=== PATIENT | male | born 1975 | race Caucasian/White ===

== ENCOUNTER → 2017-07-12 | Outpatient (CLI) | payer OTHER, BC ==
[~2017-07-12] MED LIST: ACET325T96 PO; AMIT50TA3 PO; MULT-618 PO; PANT40TA PO; PROB1TAB16 PO
--- NOTE | 2017-07-12 08:24 | DIAGNOSTIC IMAGING REPORT ---
ABDOMEN FOR HERNIA HISTORY: 42 years-old Male AB PAIN acute abdominal pain originating from the region of the right inguinal distribution. COMPARISON: CT 06/23/2016 TECHNIQUE: Multiple real-time sonographic images of the right inguinal soft tissues were obtained assessing grayscale appearance. FINDINGS/IMPRESSION: Reducible small fat filled right inguinal hernia is noted without associated bowel extending into the hernia ostium. There also appears to be trace nonspecific fluid extending into the inguinal hernia. No dilated loops of bowel identified. The above report was generated using voice recognition software. It may contain grammatical, syntax or spelling errors. Electronically signed by: Rajendra Jaimse M.D. 07/12/2017 8:23 AM Dictated Date/Time: 07/12/2017 8:18 AM
== END | disposition home or self-care (01) ==
LOC: C.ULTR 07:29
PROVIDERS: ATTEND Nurse Practitioner
DX: R10.9 Unspecified abdominal pain (principal); K40.90 Unilateral inguinal hernia, without obstruction or gangrene, not specified as recurrent

== ENCOUNTER → 2017-11-25 | Day surgery (SDC) | payer OTHER ==
[2017-11-22 14:50] VITALS: Ht 170.2 cm; Wt 81.8 kg
[~2017-11-25] VITALS: Ht 170.2 cm; Wt 81.8 kg
[~2017-11-25] MED LIST changes: -ACET325T96 PO; -AMIT50TA3 PO; +AMT100 PO; +ATROPINE SULFATE 0.1 MG/ML 5ML SYR IV PRN; +BUPIVACAINE 0.5 % 5 MG/1 ML MPF 30ML VIAL ONE; +CEFAZOLIN 2000MG IV PUSH 15 ML IV SCH; +DEXAMETHASONE SOD INJ 4 MG/ML VIAL ONE; +EpHEDrine SULFATE INJ 50 MG/ML AMP IV PRN; +FENTANYL CITRATE INJ 50 MCG/1 ML 2 ML VIAL ONE; +FLUO10CA48 PO; +HYDROmorphone INJ 1 MG/ML SYR IV PRN; +IBUP-1050 PO; +KETOROLAC TROMETHAMINE 30 MG/ML VIAL IV. PRN; +LACTATED RINGER'S 1000ML 1,000 ML IV SCH; +LIDOCAINE HCL 2% 2 ML VIAL (20MG/ML) ONE; +MIDAZOLAM HCL 1 MG/ML 2ML VIAL ONE; +MoRPHine SULFATE 2 MG/ML CARP IV PRN; +MoRPHine SULFATE 4 MG/ML 1 ML CARP\\VIAL IV PRN; +ONDANSETRON INJ 2 MG/ML 2 ML VIAL IV PRN; +ONDANSETRON INJ 2 MG/ML 2 ML VIAL ONE; +OXYC-57 PO; +OXYCODONE/ACETAMINOPHEN 5-325 TAB PO PRN; +PROPOFOL IV EMULSION 10 MG/ML 20 ML VIAL IV ONE; +SODIUM CHLORIDE 0.9% 1000ML 1,000 ML IV SCH; +URSO500T PO
--- NOTE | 2017-11-25 08:13 | Discharge Instructions ---
Discharge Instructions Date of Service Nov 25, 2017. Visit Reason for Visit: Right Inguinal Hernia Repair Discharge Discharge Diagnosis / Problem: inguinal hernia repair Discharge Goals Goal(s): Decrease discomfort Activity Recommendations Activity Limitations: as noted below Lifting Limitations: no more than 10 pounds Shower/Bathe: no limitations Driving or Machine Use: 1 week Anesthesia . Post Anesthesia Instructions: If you have had General Anesthesia or IV Sedation: * Do not drive today. * Resume driving when surgeon permits. * Do not make important decisions or sign legal documents today. * Call surgeon for: 1. Temperature elevations greater than 101 degrees F. 2. Uncontrollable pain. 3. Excessive bleeding. 4. Persistent nausea and vomiting. 5. Medication intolerance (nausea, vomiting or rash). * For nausea and vomiting use only clear liquids such as: tea, soda, bouillon until nausea subsides, then gradually increase diet as tolerated. * If you have any concerns or questions, call your surgeon's office. If physician is unavailable and it is an emergency, call 911 or go to the nearest emergency room. . Instructions / Follow-Up Instructions / Follow-Up Dr. Vail as planned in 1-2 weeks, call [phone] if you do not have an appt or have any questions Ice incision area alternating off and on every 20 min until bedtime Diet Recommendations Recommended Home Diet: no limitations Pending Studies Studies pending at discharge: no Medical Emergencies . Who to Call and When: Medical Emergencies: If at any time you feel your situation is an emergency, please call 911 immediately. . Non-Emergent Contact Non-Emergency issues call your: Surgeon Call Non-Emergent contact if: you have a fever, temperature is above 101.5, your pain is not controlled, wound has increased redness, you have any medication questions . . "Provider Documentation" section prepared by Antonio Kwon. .
--- NOTE | 2017-11-25 08:22 | History & Physical Bridge - [place] ---
H&P Re-Evaluation Bridge Note: I have examined the patient, reviewed the History & Physical and in the interval since the performance of the History & Physical I have noted the following changes of clinical significance: Patient with right inguinal hernia, plan for open right inguinal hernia repair. Risks reviewed, questions answered , agrees to proceed. No changes noted
--- NOTE | 2017-11-25 09:37 | [facility] Post Operative Brief Note ---
Immediate Operative Summary Operative Date Nov 25, 2017. Pre-Operative Diagnosis Right Inguinal Hernia Post-Operative Diagnosis Indirect right inguinal hernia Procedure(s) Performed Right Inguinal Open Hernia Repair Surgeon Dr. Vail Fence Installer Surgeon(s) Enrico Kwon PA-C Estimated Blood Loss 4 cc Findings Consistent with Post-Op Diagnosis Indirect inguinal hernia, repaired with mesh Specimens Ilioinguinal nerve Cord lipoma Drains None Anesthesia Type General Complication(s) none Disposition Accompanied Pt To Recovery: no Disposition: Recovery Room / PACU
--- NOTE | 2017-11-25 09:55 | [facility] Operative Report ---
Operative Report Operative Date Nov 25, 2017. Pre-Operative Diagnosis Right Inguinal Hernia Post-Operative Diagnosis Indirect right inguinal hernia Procedure(s) Performed Right Inguinal Open Hernia Repair Surgeon Dr. Vail Sales Department Supervisor Surgeon(s) Enrico Kwon PA-C Estimated Blood Loss 4 cc Findings Indirect inguinal hernia, repaired with mesh Specimens Ilioinguinal nerve Cord lipoma Drains None Anesthesia Type General Complication(s) none Disposition no Recovery Room / PACU Indications 42-year-old male with symptomatic right inguinal hernia, plan for open right inguinal hernia repair. The risks of the procedure were discussed, all questions were answered, and the patient agreed to proceed with surgery as planned. Description of Procedure The patient was properly identified, consented, and taken to the operating room where he was placed in the supine position. General endotracheal anesthesia was induced. SCDs and a safety belt were placed. Preoperative antibiotics were administered. The patient's groins and abdomen were prepped and draped in the standard sterile fashion. A surgical timeout was performed and all parties were in agreement that this was the correct patient and procedure to be performed and we continued as planned. Local anesthetic in the form of 0.5% Marcaine was injected along the proposed incision site and an ilioinguinal nerve block was performed. An oblique incision was made in the right groin and deepened down to subcutaneous tissue with electrocautery. The aponeurosis of the external oblique muscle was cleared of investing tissue. A small incision was made in the aponeurosis of the external oblique muscle with a knife and lengthened under direct visualization with Metzenbaum scissors. Flaps were raised cephalad and caudad on the posterior portion of the external oblique. The ilioinguinal nerve was identified and divided. The cord structures were circumferentially dissected and encircled with a Rio drain. A moderate sized indirect hernia and small cord lipoma were noted. The hernia sac was dissected away from the cord structures, and reduced back into the abdomen. The cord lipoma was ligated and sent as specimen. Hemostasis was achieved within the wound. A piece of polypropylene mesh was sewn into place using interrupted 0 Nurolon sutures. It was secured to the pubic tubercle medially, the inguinal ligament caudad, and the conjoined tendon cephalad. The internal ring was recreated by securing the tails and could accommodate the tip of the surgeons fifth digit. The wound was irrigated and hemostasis confirmed. The aponeurosis of the external oblique was then closed with a running 3-0 Vicryl suture. The wound was irrigated. Karuna's fascia was reapproximated with interrupted 3-0 Vicryl suture. The skin was closed with a running 4-0 Monocryl subcuticular suture, and Dermabond was placed over the incision. The patient was extubated in the operating room and taken to the PACU for recovery without apparent incident. All sponge, instrument, and needle counts were correct at the conclusion of the procedure. The patient tolerated the procedure well. The physician's central supply assistant was present and scrubbed for the entirety of the case. He was critical in positioning the patient, prepping and draping, retraction and exposure, placement of the mesh, closure, and placement of the dressing. I attest to the content of the Intraoperative Record and any orders documented therein. Any exceptions are noted below.
[2017-11-25] MEDS: FENTANYL CITRATE INJ 50 MCG/1 ML 2 ML VIAL IV PRN ×2 (10:46→10:51)
[2017-11-25 11:10] VITALS: BP 136/94; PULSE 108; TEMP 36.6; O2SAT 94
--- NOTE | 2017-11-25 15:53 | Anesthesia Progress Nt - [facility] ---
Anesthesia Post Op Note Date & Time Nov 25, 2017 at 15:53 Vital Signs Pain Intensity: 5.0 Vital Signs Past 12 Hours Date Time Temp Pulse Resp B/P (MAP) Pulse Ox O2 Delivery O2 Flow Rate FiO2 11/25/17 11:10 36.6 108 18 136/94 (108) 94 Room Air 11/25/17 11:00 150/100 11/25/17 10:59 102 14 11/25/17 10:59 101 14 98 11/25/17 10:55 36.8 98 18 150/98 95 Room Air 11/25/17 10:55 141/100 11/25/17 10:54 106 16 11/25/17 10:54 105 16 97 11/25/17 10:50 137/98 11/25/17 10:49 99 13 11/25/17 10:49 99 13 93 11/25/17 10:45 134/95 11/25/17 10:44 101 22 94 11/25/17 10:44 101 22 11/25/17 10:40 140/92 11/25/17 10:39 101 15 93 11/25/17 10:39 100 15 11/25/17 10:35 134/93 11/25/17 10:34 98 14 98 11/25/17 10:34 101 14 11/25/17 10:30 134/93 11/25/17 10:29 103 11 93 11/25/17 10:29 106 11 11/25/17 10:25 130/100 11/25/17 10:24 109 17 11/25/17 10:24 17 11/25/17 10:20 145/96 11/25/17 10:19 98 18 11/25/17 10:19 97 18 97 11/25/17 10:15 141/95 11/25/17 10:14 100 15 97 11/25/17 10:14 101 15 11/25/17 10:10 133/93 11/25/17 10:09 90 13 97 11/25/17 10:09 90 13 11/25/17 10:05 121/83 11/25/17 10:04 88 18 97 11/25/17 10:04 89 18 11/25/17 10:00 107/76 11/25/17 09:59 88 17 11/25/17 09:59 87 17 96 11/25/17 09:55 122/76 11/25/17 09:54 89 18 96 11/25/17 09:54 89 18 11/25/17 09:51 118/77 11/25/17 09:49 91 16 96 11/25/17 09:49 91 16 11/25/17 09:45 92/73 11/25/17 09:44 36.6 94 16 120/74 95 Mask 6 11/25/17 07:26 36.4 106 16 134/94 (107) 96 Room Air Notes Mental Status: alert / awake / arousable, participated in evaluation Pt Amnestic to Procedure: Yes Nausea / Vomiting: adequately controlled Pain: adequately controlled Airway Patency, RR, SpO2: stable & adequate BP & HR: stable & adequate Hydration State: stable & adequate Anesthetic Complications: no major complications apparent
== END | disposition home or self-care (01) ==
LOC: X.SURG 07:17
PROVIDERS: ATTEND Surgery
DX: K40.90 Unilateral inguinal hernia, without obstruction or gangrene, not specified as recurrent (principal); Z88.1 Allergy status to other antibiotic agents; Z98.890 Other specified postprocedural states; F32.9 Major depressive disorder, single episode, unspecified; Z91.018 Allergy to other foods; Z82.49 Family history of ischemic heart disease and other diseases of the circulatory system; Z90.89 Acquired absence of other organs